=== PATIENT | female | born 1995 | race Caucasian/White ===

== ENCOUNTER 2019-12-18 04:40 | Emergency (ER) | payer SELFPAY ==
--- NOTE | 2019-12-18 04:58 | EDM.PDOC ---
ED HPI GENERAL MEDICAL PROBLEM - General Chief Complaint: Neck Problem Stated Complaint: FELL OFF LADDER Time Seen by Provider: 12/18/19 04:41 - History of Present Illness INITIAL COMMENTS - FREE TEXT/NARRATIVE: Patient is a 24-year-old female limit who presents with headache right ear pain and neck pain after a fall off a ladder. Patient reports that approximately 4 AM she was trying to hang things she had a ladder on the stairs missed a step and fell approximately 5 feet striking the right side of her head anterior portion of her neck on the stairs no LOC patient complains of anterior neck pain and pain with swallowing but no difficulty breathing she also complains of right-sided head pain with bleeding from the right external auditory canal she denies posterior neck pain she reports superior chest pain where she hit the stairs as well but no shortness of breath no abdominal pain no extremity pain no pain in the abdomen of the pelvis. Patient ambulated after the incident without any pain in the hips or pelvis. Worsened with direct pressure no alleviating factors radiation or other associated symptoms. neck/chest/right ear Pain Score (Numeric/FACES): 8 - Related Data Allergies Allergy/AdvReac Type Severity Reaction Status Date / Time No Known Allergies Allergy Verified 12/18/19 04:50 Home Meds: Home Meds lamoTRIgine [Lamictal] 100 mg PO DAILY 12/18/19 [History] ED ROS GENERAL - Review of Systems Review Of Systems: See Below Free Text/Narrative/Comment: General: No fever. Skin: No rash. Eyes: No vision problems. ENT: Per HPI Neck: No neck stiffness. Respiratory: No shortness of breath. Cardiac: No chest pain. Gastrointestinal: No nausea, vomiting or abdominal pain. Urinary: No dysuria. Musculoskeletal: No myalgias/arthralgias. Neurologic: Per HPI ED EXAM, GENERAL - Physical Exam Exam: See Below Free Text/Narrative:: General Appearance: No acute distress, appears comfortable Skin: No rash HEENT: Abrasion with small area of swelling superior right lateral forehead, bleeding from the external auditory canal obscures the TM, no laceration apparent over the external ear sclera anicteric, mucous membranes moist Neck: Anterior neck tenderness particularly over the hyoid bone no stridor no submental or sublingual swelling no palpable thrill in the bilateral carotids normal bilateral carotid pulses no anterior neck swelling Chest and Lungs: Bilateral breath sounds, clear to auscultation, tenderness over the bilateral anterior chest with associated abrasions no crepitus or swelling Cardiovascular: Regular rate and rhythm, no murmur Abdomen: Soft, non-tender Back: Normal Musculoskeletal: No edema or tenderness Neurologic: Awake, alert, no obvious deficits, moving all extremities Psychiatric: Appropriate, cooperative Course - Vital Signs Last Recorded V/S: Last Vital Signs Temp 97.5 F 12/18/19 05:50 Pulse 114 H 12/18/19 06:05 Resp 18 12/18/19 06:05 BP 110/74 12/18/19 06:05 Pulse Ox 98 12/18/19 06:05 - Orders/Labs/Meds Orders: Active Orders 24 hr Category Date Time Status DRUG SCREEN, URINE [URCHEM] Stat Lab 12/18/19 06:30 Received UA W/MICROSCOPIC [URIN] Stat Lab 12/18/19 06:30 Received Labs: Laboratory Tests 12/18/19 12/18/19 Range/Units 05:00 05:00 WBC 17.77 H (4.0-11.0) K/uL RBC 4.25 L (4.30-5.90) M/uL Hgb 12.3 (12.0-16.0) g/dL Hct 38.6 (36.0-46.0) % MCV 90.8 (80.0-98.0) fL MCH 28.9 (27.0-32.0) pg MCHC 31.9 (31.0-37.0) g/dL RDW Std Deviation 44.6 (28.0-62.0) fl RDW Coeff of Lauri 14 (11.0-15.0) % Plt Count 474 H (150-400) K/uL MPV 8.60 (7.40-12.00) fL Neut % (Auto) 78.9 (48.0-80.0) % Lymph % (Auto) 16.4 (16.0-40.0) % [place] % (Auto) 4.4 (0.0-15.0) % Eos % (Auto) 0.1 (0.0-7.0) % Baso % (Auto) 0.2 (0.0-1.5) % Neut # (Auto) 14.0 H (1.4-5.7) K/uL Lymph # (Auto) 2.9 H (0.6-2.4) K/uL [place] # (Auto) 0.8 (0.0-0.8) K/uL Eos # (Auto) 0.0 (0.0-0.7) K/uL Baso # (Auto) 0.0 (0.0-0.1) K/uL Nucleated RBC % 0.0 /100WBC Nucleated RBCs # 0 K/uL Sodium 138 (136-145) mmol/L Potassium 4.1 (3.5-5.1) mmol/L Chloride 103 (98-107) mmol/L Carbon Dioxide 21.9 (21.0-32.0) mmol/L BUN 17 (7.0-18.0) mg/dL Creatinine 1.0 (0.6-1.0) mg/dL Est Cr Clr Drug Dosing 74.26 mL/min Estimated GFR (MDRD) > 60.0 ml/min Glucose 137 H (74-106) mg/dL Calcium 8.0 L (8.5-10.1) mg/dL Total Bilirubin 0.2 (0.2-1.0) mg/dL AST 43 H (15-37) IU/L ALT 35 (14-63) IU/L Alkaline Phosphatase 65 (46-116) U/L Total Protein 7.5 (6.4-8.2) g/dL Albumin 3.9 (3.4-5.0) g/dL Globulin 3.6 (2.6-4.0) g/dL Albumin/Globulin Ratio 1.1 (0.9-1.6) Meds: Medications Discontinued Medications Generic Name Dose Route Start Last Admin Trade Name Freq PRN Reason Stop Dose Admin Iopamidol 100 ml 12/18/19 05:25 12/18/19 05:25 Isovue-370 (76%) IVPUSH 12/18/19 05:26 100 ml ONETIME ONE Administration Departure - Departure Time of Disposition: 05:45 Disposition: DC/Tfer to Acute Hospital 02 Condition: Good Clinical Impression: Subdural hematoma, acute - Discharge Information *PRESCRIPTION DRUG MONITORING PROGRAM REVIEWED*: Not Applicable *COPY OF PRESCRIPTION DRUG MONITORING REPORT IN PATIENT TIESHA: Not Applicable Referrals: PCP,None [Primary Care Provider] - Forms: ED Department Discharge Sepsis Event Note (ED) - Focused Exam Vital Signs: Vital Signs Temp Pulse Resp BP Pulse Ox 12/18/19 06:05 114 H 18 110/74 98 12/18/19 05:50 97.5 F 118 H 18 116/73 98 12/18/19 05:35 111 H 18 126/78 98 12/18/19 04:50 97.1 F 112 H 18 111/71 100 - My Orders Last 24 Hours: My Active Orders 12/18/19 06:30 DRUG SCREEN, URINE [URCHEM] Stat UA W/MICROSCOPIC [URIN] Stat - Assessment/Plan Last 24 Hours: My Active Orders 12/18/19 06:30 DRUG SCREEN, URINE [URCHEM] Stat UA W/MICROSCOPIC [URIN] Stat Assessment:: 24-year-old female presents with head and neck pain after fall from a ladder as described primary survey intact secondary survey notable for findings in the ant erior superior chest in the anterior neck and right ear. I believe you can clinically clear the face abdomen pelvis and extremities CT scan of the brain is been ordered given the significant anterior neck trauma and the pain with swallowing CT angios of the neck added to exclude traumatic carotid artery dissection and also evaluate for hyoid bone fracture and other blunt injury to the neck. No repairable laceration is immediately apparent within the right ear but will irrigate and reassess 0535: Per Dr. Quiles of radiology the patient has a small tentorial right sided hematoma. Patient will need to be transferred to a trauma center. 0543: Patient accepted for transfer to [facility] by Dr. Acosta. Patient is felt stable for ALS transfer. Her neurologic exam is normal, her mental status is normal. 0553: Per Dr. Quiles the patient has free air in the posterior neck consistent with esophageal or hypopharyngeal injury. EMS states 40 min ETA. CTA with no vessel abnormalities, no c-spine fractures. C-collar will remain in place. 0630: [facility] ED updated on CT neck findings. They continue to accept the transfer. They request that we discuss with otolaryngology. [facility] unable to get in touch with ENT for > 15 minutes. They will call us back when they are able to get a hold of them. Will continue with transfer. 0650: Patient discussed with Dr. Feliciano of otolaryngology we discussed her physical exam findings and the imaging report. We will evaluate the patient on arrival.
[2019-12-18 05:19] LABS: BLOOD UREA NITROGEN,BUN 17 mg/dL (7.0-18.0); CARBON DIOXIDE,CO2 21.9 mmol/L (21.0-32.0); CHLORIDE,CL 103 mmol/L (98-107); GLUCOSE RANDOM 137 mg/dL (74-106); POTASSIUM,K 4.1 mmol/L (3.5-5.1); SODIUM,NA 138 mmol/L (136-145)
[2019-12-18] MEDS ORDERED: Iopamidol 755 Mg/ML 100 ML Bottle IVPUSH ONE (05:25)
--- NOTE | 2019-12-18 05:31 | CR ---
INDICATION: Chest injury from fall TECHNIQUE: Chest radiograph 1 view COMPARISON: None FINDINGS: Mediastinum: The mediastinum is normal in appearance. The heart silhouette is normal in size and morphology. Lung: Both lungs are unremarkable in appearance. Metallic brassier clips and underwires obscure portions of the lung. No sign of pleural effusion seen. No pneumothorax is identified. Bone and Soft tissue: Unremarkable for age. IMPRESSION: 1. No acute cardiopulmonary disease is seen. 2. Metallic brassier clips and underwires obscure portions of the lung and ribs. Dictated by: Taiwo Quiles MD @ 12/18/2019 05:29:53 (Electronically Signed)
--- NOTE | 2019-12-18 05:37 | CT ---
INDICATION: Head injury from fall, blunt anterior neck trauma TECHNIQUE: CT Head without i.v. contrast. COMPARISON: None FINDINGS: CSF space: The ventricles are normal for age. Brain: There is trace right tentorial subdural hematoma present. No mass-effect or midline shift is seen. The brain parenchyma is otherwise normal in appearance with preservation of the kyle-white matter junction. Calvarium: The visualized paranasal sinuses are well aerated. The mastoid air cells are clear. The visualized orbits are grossly unremarkable. The calvarium is unremarkable in appearance with no fractures identified. IMPRESSION: 1. There is trace right tentorial subdural hematoma present. The findings were discussed with Dr. Martínez at 5:35 AM. Dictated by Taiwo Quiles MD @ 12/18/2019 5:33:26 AM Please note that all CT scans at this facility use dose modulation, iterative reconstruction, and/or weight-based dosing when appropriate to reduce radiation dose to as low as reasonably achievable. Dictated by: Taiwo Quiles MD @ 12/18/2019 05:37:28 (Electronically Signed)
--- NOTE | 2019-12-18 05:56 | CT ---
DATE: 12/18/2019 CLINICAL HISTORY: Patient with fall and blunt neck trauma. TECHNIQUE: Standard helical CT image acquisition of the neck up to the skull base after bolus intravenous contrast enhancement. Multiplanar reconstructed images performed on a separate workstation. COMPARISON: CT same day FINDINGS: The origins of the great vessels from the aortic arch are patent. The origin of the right vertebral artery is patent. The origin of the left vertebral artery is patent. The common carotid arteries are patent. There is no stenosis at the origin of the right internal carotid artery. There is no stenosis at the origin of the left internal carotid artery. The rest of the cervical segments of the internal carotid arteries are patent up to the skull base. The left vertebral artery is dominant. The cervical segments of the vertebral arteries are patent up to the skull base. The visualized intracranial vasculature is unremarkable. The visualized lung apices are unremarkable. The thyroid gland is unremarkable. The soft tissues of the neck demonstrate left retropharyngeal gas is present and tracks along the lateral aspect of the left hyoid. There is soft tissue thickening present along the left area epiglottic fold which obscures the left piriform sinus. In addition, there is a possible fracture of the posterior aspect of the left thyroid cartilage. Findings are suspicious for a left thyroid cartilage fracture with associated pharyngeal or esophageal perforation. The cervical spine is normal. IMPRESSION: 1. No evidence of arterial injury. 2. Findings suspicious for a possible left thyroid cartilage fracture with associated pharyngeal or esophageal perforation. Clinical correlation and ENT evaluation is recommended. Please note that all CT scans at this facility use dose modulation, iterative reconstruction, and/or weight-based dosing when appropriate to reduce radiation dose to as low as reasonably achievable. Dictated by Sofya Cardona MD @ Dec 18 2019 6:48AM Signed by Dr. Sofya Cardona @ Dec 18 2019 6:59AM
--- NOTE | 2019-12-18 06:03 | CT ---
INDICATION: Face injury from fall, blunt anterior neck trauma TECHNIQUE: CT maxillofacial without i.v. contrast. Coronal and sagittal reformats were obtained. COMPARISON: None FINDINGS: Bone: No acute fractures or aggressive bone lesions are identified. Joint: The temporomandibular joints are unremarkable in appearance. Sinus: The sinuses are well-aerated with no significant mucosal thickening or retained secretions seen. The ostiomeatal units are patent. The nasal turbinates are normal. Mild leftward deviation of the nasal septum is noted. Orbit: The visualized orbits are grossly unremarkable. Soft tissue: Subcutaneous and soft tissue emphysema is present along the left external auditory canal and left pinna. There is soft tissue opacity within the left external auditory canal which may be due to hematoma. Several submental lymph nodes are present measuring up to 5 mm. Right submandibular lymph nodes are present measuring up to 4 mm. IMPRESSIONS: 1. No acute osseous injuries or abnormalities are seen. 2. Subcutaneous and soft tissue emphysema is present along the left external auditory canal and left pinna. Correlation with physical examination is recommended for any adjacent puncture or laceration injuries. If the physical exam is unremarkable, assessment with temporal bone CT is recommended to exclude a fracture. Dictated by Taiwo Quiles MD @ 12/18/2019 6:02:07 AM Please note that all CT scans at this facility use dose modulation, iterative reconstruction, and/or weight-based dosing when appropriate to reduce radiation dose to as low as reasonably achievable. Dictated by: Taiwo Quiles MD @ 12/18/2019 06:02:21 (Electronically Signed)
--- NOTE | 2019-12-18 06:05 | CT ---
INDICATION: Fall, blunt anterior neck trauma TECHNIQUE: CT cervical spine without i.v. contrast. Coronal and sagittal reformats were obtained. COMPARISON: None FINDINGS: Alignment: Unremarkable. Bone: No acute fractures or aggressive bone lesions are identified. Disc: The disc spaces are unremarkable in appearance. The facet joints are unremarkable. Soft tissue: A small amount of left retropharyngeal gas is present at the C3-4 level and tracks laterally along the anterior margin of the left hyoid bone. The visualized lung apices and mediastinum are unremarkable. IMPRESSIONS: 1. No acute osseous injuries are identified. 2. A small amount of left retropharyngeal gas is present at the C3-4 level and tracks laterally along the anterior margin of the left hyoid bone. Findings are suspicious for injury to the esophagus or hypopharynx. Dictated by Taiwo Quiles MD @ 12/18/2019 5:49:27 AM Please note that all CT scans at this facility use dose modulation, iterative reconstruction, and/or weight-based dosing when appropriate to reduce radiation dose to as low as reasonably achievable. Dictated by: Taiwo Quiles MD @ 12/18/2019 06:04:13 (Electronically Signed)
== END 2019-12-18 07:20 ==
LOC: MW.ED 04:40
DX: S06.5X0A Traumatic subdural hemorrhage without loss of consciousness, initial encounter (principal); W11.XXXA Fall on and from ladder, initial encounter
CPT/HCPCS: 36415; 70450; 70486; 70498; 71045; 72125; 80053; 80305; 81001; 85025; 99285; Q9967; 99284